=== PATIENT | female | born 1945 | race Caucasian/White ===

== ENCOUNTER 2016-12-19 13:09 | Observation (INO) | payer MEDICARE, OTHER ==
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
[2016-12-19 13:42] LABS: Hematocrit 41.3 % (37.0-47.0); Hemoglobin 14.3 gm/dL (12.5-16.0); Mean Cell Volume 88.6 fl (78-100); Mean Corpuscular Hemoglobin 30.7 pg (27-31); Mean Corpuscular Hgb Conc 34.6 g/dl (32-36); Mean Platelet Volume 11.2 fl (6.0-9.5); Neutrophil % 58.7 % (42-75.0); Platelet Count 167 K/mm3 (150-450); Red Blood Count 4.66 M/mm3 (4.2-5.4); Red Cell Distribution Width 12.3 % (11.5-14.0); White Blood Count 8.5 K/mm3 (4.0-10.5)
[2016-12-19 13:45] LABS: Prothrombin Time (Patient) 10.2 Seconds (9.4-11.4)
[2016-12-19 13:47] LABS: INR 0.98 INR (0.90-1.10); Partial Thrombolplastin Time 25.4 Seconds (24-32)
[2016-12-19 13:52] LABS: ALT 10 U/L (19-67); AST 8 U/L (0-48); Albumin * 3.7 gm/dl (3.4-5.0); Alkaline Phosphatase * 88 U/L (50-170); Anion Gap 10.3 mmol/L (6.8-13.8); BUN/Creatinine Ratio 17.6 (9.0-21.6); Bilirubin, Total 0.4 mg/dL (0.0-1.1); Blood Urea Nitrogen 16 mg/dL (3-23); Ca. Corrected For Albumin 9.2 mg/dL (8.4-10.2); Calcium * 9.3 mg/dL (7.9-10.9); Carbon Dioxide 29.3 mmol/L (24-32.6); Chloride 103 mmol/L (97-106); Glucose * 78 mg/dL (70-110); Potassium 4.6 mmol/L (3.4-4.6); Sodium 138 mmol/L (132-142); Total Protein 6.7 gm/dL (6.2-8.2); Troponin I Less than 0.017 ng/ml (0.00-0.10)
[2016-12-19] MEDS ORDERED: NICOTINE 21 MG PATC TD SCH (15:15)
[2016-12-19] MEDS ORDERED: NITROGLYCERIN 0.4 MG/TAB BTL SL PRN (15:23)
[2016-12-19] MEDS ORDERED: NICOTINE 14 MG PATC TD PRN (15:28)
[2016-12-19] MEDS ORDERED: ASPIRIN 81 MG TAB.CHEW PO STA (15:32)
[2016-12-19] MEDS ORDERED: ASPIRIN 81 MG TAB.CHEW PO ONE (15:32)
--- NOTE | 2016-12-19 15:32 | HP ---
Chief Complaint - Chief Complaint Date of Service: 12/19/16 Time of Service: 15:31 Chief Complaint: chest pain History of Present Illness: The patient is a 71-year-old female that presented to the emergency department for chest pain. The patient states that around noon today she developed chest pain that was centrally located and stretched all the way across her chest from one breast and the other. She describes the pain as a squeezing sensation. The pain occurred while at rest shortly after returning home from the grocery store. She states the pain lasted approximately 40 minutes before it completely resolved on its own prior to the patient arriving in the emergency department and she has not had any further episodes of chest pain since arrival. The patient denies any prior similar episodes. The patient denies any associated N/V, shortness of breath, sweating or radiation of the pain into her back, neck, jaw or arms. The patient denies any recent change in activity or other potential musculoskeletal etiology for her chest pain. The pain is not reproduced by any specific movement or by palpation. - Patient's Past Medical History Patient History - Medical: No pertinent hx Patient History - Cardiac/Respiratory: No pertinent hx Patient History - Cancer: No Hx of Cancer Patient History - Surgical Procedures: T & A Patient History - Other: None LMP (females 10-50): Menopausal - Family History Family History:: no family history of premature - no family history of heart disease or FL in first-degree relatives less than 55 years old - Social History Living Situations: home Psych History: No pertinent hx Smoking Status: Current every day smoker Have you smoked in the past 12 months: Yes Alcohol Use: other Drug Use: none - Immunizations Immunizations Up to Date: Yes Hx Pneumococcal Vaccination: No History of Influenza Vaccine: No Review Of Systems (GEN) - Review of Systems Generalized/Overall Review: Present: No Symptoms Reported EENTM: Present: No Symptoms Reported Respiratory: Present: No Symptoms Reported. Absent: Cough, Shortness of Breath , Orthopnea Cardiac: Present: No Symptoms Reported. Absent: Chest Pain, Edema, Palpitations , Syncope Abdominal: Present: No Symptoms Reported. Absent: Nausea, Vomiting, Abdominal Pain, Diarrhea Genitourinary: Present: No Symptoms Reported Musculoskeletal: Present: No Symptoms Reported Neurological: Present: No Symptoms Reported Skin: Present: No Symptoms Reported Endocrine: Present: No Symptoms Reported Misc: All systems neg except as marked Additional Comments: At the time of my exam, the patient denies any concerns and states that her chest pain has completely resolved and she feels back to her usual baseline. Immunizations: IMMUNIZATION HX Immunizations Up to Date Yes History of Influenza Vaccine No Hx Pneumococcal Vaccination No Allergies/Adverse Reactions: Allergies Allergy/AdvReac Type Severity Reaction Status Date / Time No Known Allergies Allergy Verified 12/19/16 13:17 Home Medications: HOME MEDICATIONS NK [No Home Medication] 05/27/16 [Last Taken Unknown] Exam - Exam Vital Signs: Vital Signs - Last Taken Temp 36.1 C L 12/19/16 15:08 Pulse 48 L 12/19/16 15:08 Resp 25 H 12/19/16 15:08 BP 152/59 12/19/16 15:08 Pulse Ox 100 12/19/16 15:08 Constitutional: Present: Alert, Oriented x3, Cooperative, Well developed, Well nourished, No distress, Looks Younger than stated age ENT Exam: Present: hearing grossly normal, moist mucous membranes Eye Exam: bilateral eye: normal inspection, EOMI Respiratory: Present: chest non-tender, lungs clear, no respiratory distress, no accessory muscle use, decreased breath sounds Cardiovascular/Chest: Present: no chest tenderness, no edema, no murmur, bradycardia Abdomen: Present: Normal bowel sounds, soft, nontender, nondistended, no rebound tenderness Extremity: Present: normal inspection, no pedal edema Skin Exam: Present: normal color, warm/dry, no cyanosis Neurologic: Present: no motor/sensory deficits, alert, normal mood/affect, oriented x 3 Appearance: Present: appropriate appearance, appropriate insight, neat, no memory impairment Eye contact: Present: cooperative, good eye contact, normal speech Thoughts: Present: normal thought pattern, no apparent hallucination Diagnostic Studies: Laboratory Results WBC 8.5 K/mm3 (4.0-10.5) 12/19/16 13:31 RBC 4.66 M/mm3 (4.2-5.4) 12/19/16 13:31 Hgb 14.3 gm/dL (12.5-16.0) 12/19/16 13:31 Hct 41.3 % (37.0-47.0) 12/19/16 13:31 MCV 88.6 fl (78-100) 12/19/16 13:31 MCH 30.7 pg (27-31) 12/19/16 13:31 MCHC 34.6 g/dl (32-36) 12/19/16 13:31 RDW 12.3 % (11.5-14.0) 12/19/16 13:31 Plt Count 167 K/mm3 (150-450) 12/19/16 13:31 MPV 11.2 fl (6.0-9.5) H 12/19/16 13:31 Immature Gran % (Auto) 0.20 % (0.001-0.429) 12/19/16 13:31 Immature Gran # (Auto) 0.02 K/mm3 (0.000-0.0310) 12/19/16 13:31 Neutrophils % 58.7 % (42-75.0) 12/19/16 13:31 Lymphocytes % 33.1 % (20-51) 12/19/16 13:31 Monocytes % 6.3 % (0.0-9) 12/19/16 13:31 Eosinophils % 1.2 % (0.0-3.0) 12/19/16 13:31 Basophils % 0.5 % (0.0-1.0) 12/19/16 13:31 Nucleated RBC % 0.0 k/mm3 (0-1) 12/19/16 13:31 Neutrophils # 5.0 K/mm3 (1.3-6.0) 12/19/16 13:31 Lymphocytes # 2.8 k/mm3 (1.5-3.5) 12/19/16 13:31 Monocytes # 0.5 k/mm3 (0.0-1.0) 12/19/16 13:31 Eosinophils # 0.1 k/mm3 (0.0-0.7) 12/19/16 13:31 Absolute Basophils 0.0 k/mm3 (0.0-0.1) 12/19/16 13:31 PT 10.2 Seconds (9.4-11.4) 12/19/16 13:31 INR (Anticoag Therapy) 0.98 INR (0.90-1.10) 12/19/16 13:31 PTT ([place]) 25.4 Seconds (24-32) 12/19/16 13:31 D-Dimer 0.52 mg/L (0.19-0.49) H 12/19/16 13:30 Sodium 138 mmol/L (132-142) 12/19/16 13:31 Plasma Sodium 138 mmol/L (130-142) 12/19/16 13:31 Potassium 4.6 mmol/L (3.4-4.6) 12/19/16 13:31 Chloride 103 mmol/L (97-106) 12/19/16 13:31 Carbon Dioxide 29.3 mmol/L (24-32.6) 12/19/16 13:31 Anion Gap 10.3 mmol/L (6.8-13.8) 12/19/16 13:31 BUN 16 mg/dL (3-23) 12/19/16 13:31 Creatinine 0.91 mg/dL (0.4-1.4) 12/19/16 13:31 Est GFR (Non-Af Amer) 65 mL/min (60-130) 12/19/16 13:31 BUN/Creatinine Ratio 17.6 (9.0-21.6) 12/19/16 13:31 Random Glucose 78 mg/dL (70-110) 12/19/16 13:31 Calcium 9.3 mg/dL (7.9-10.9) 12/19/16 13:31 Calcium Adj for Albumin 9.2 mg/dL (8.4-10.2) 12/19/16 13:31 Total Bilirubin 0.4 mg/dL (0.0-1.1) 12/19/16 13:31 AST 8 U/L (0-48) 12/19/16 13:31 ALT 10 U/L (19-67) L 12/19/16 13:31 Alkaline Phosphatase 88 U/L (50-170) 12/19/16 13:31 Troponin I Less than 0.017 ng/ml (0.00-0.10) 12/19/16 13:31 Total Protein 6.7 gm/dL (6.2-8.2) 12/19/16 13:31 Albumin 3.7 gm/dl (3.4-5.0) 12/19/16 13:31 Assessment/Plan - Narrative Narrative: IMPRESSION & PLAN: Chest Pain -Admit to Med-Surg, Observation Status -Potential etiologies include: ACS vs. musculoskeletal vs. GI (esophageal reflux, esophageal spasm, etc.) -Monitor on telemetry -Trend cardiac enzymes -Check cardiac panel and repeat EKG in a.m. -Give aspirin 325 mg PO X 1 STAT -Check CMP and fasting lipid panel in AM -D-dimer checked in the emergency department with results being flagged as elevated based on our laboratory range. However given the patients age, a d- dimer less than 0.70 would be considered normal. This was discussed with the emergency department physician; however, the emergency department physician made the decision to go ahead and get a chest CT with PE protocol just to be sure. Chest CT shows no evidence for pulmonary embolism, probable prominent pericardial recesses, mild cardiomegaly and emphysematous changes. Tobacco Abuse -Patient counseled on smoking cessation -Nicotine patch as needed during admission Disposition: If cardiac enzymes and overnight monitoring is uneventful, I will plan to discharge the patient home in the a.m. and recommend that she establish care at the primary care physician to discuss whether further outpatient workup is necessary or not. - Assessment/Plan (1) Chest pain Problem: Acute Qualifiers: Chest pain type: unspecified Qualified Code(s): R07.9 - Chest pain, unspecified (2) Tobacco abuse Problem: Chronic
[2016-12-19] MEDS ORDERED: ASPIRIN 81 MG TAB.CHEW ONE (16:26)
[2016-12-20 06:33] LABS: ALT 13 U/L (19-67); AST 8 U/L (0-48); Albumin * 3.6 gm/dl (3.4-5.0); Alkaline Phosphatase * 81 U/L (50-170); Anion Gap 15.5 mmol/L (6.8-13.8); BUN/Creatinine Ratio 15.7 (9.0-21.6); Bilirubin, Total 0.4 mg/dL (0.0-1.1); Blood Urea Nitrogen 11 mg/dL (3-23); CK Total * 34 U/L (0-259); Ca. Corrected For Albumin 9.2 mg/dL (8.4-10.2); Calcium * 9.2 mg/dL (7.9-10.9); Carbon Dioxide 26.4 mmol/L (24-32.6); Chloride 104 mmol/L (97-106); Chol/HDL Risk Ratio 2.5 mg/dL (3.3-4.4); Cholesterol 170 mg/dL (0-200); Glucose * 89 mg/dL (70-110); HDL Cholesterol 68 mg/dL (40-60); LDL Cholesterol 87 mg/dL (70-130); Potassium 3.9 mmol/L (3.4-4.6); Sodium 142 mmol/L (132-142); Total Protein 6.6 gm/dL (6.2-8.2); Triglycerides 73 mg/dL (30-200); Troponin I Less than 0.017 ng/ml (0.00-0.10); VLDL Cholesterol 15 mg/dL (5-40)
[2016-12-20 08:19] VITALS: BP 124/44
--- NOTE | 2016-12-20 08:56 | DS ---
(1) Chest pain Problem: Acute Qualifiers: Chest pain type: unspecified Qualified Code(s): R07.9 - Chest pain, unspecified (2) Tobacco abuse Problem: Chronic Description of Stay: ADMISSION DATE: 12/19/2016 DISCHARGE DATE: 12/20/2016 ADMISSION HPI: The patient is a 71-year-old female that presented to the emergency department for chest pain. The patient states that around noon today she developed chest pain that was centrally located and stretched all the way across her chest from one breast and the other. She describes the pain as a squeezing sensation. The pain occurred while at rest shortly after returning home from the grocery store. She states the pain lasted approximately 40 minutes before it completely resolved on its own prior to the patient arriving in the emergency department and she has not had any further episodes of chest pain since arrival. The patient denies any prior similar episodes. The patient denies any associated N/V, shortness of breath, sweating or radiation of the pain into her back, neck, jaw or arms. The patient denies any recent change in activity or other potential musculoskeletal etiology for her chest pain. The pain is not reproduced by any specific movement or by palpation. PROBLEM BASED HOSPITAL COURSE: Chest Pain -Potential etiologies include: ACS vs. musculoskeletal vs. GI (esophageal reflux, esophageal spasm, etc.). The patient was monitored on telemetry overnight and she had serial cardiac enzyme monitoring. There were no issues or concerns to report on telemetry and her serial cardiac enzymes were unremarkable. I have recommended to the patient that she follow-up with her primary care provider within one week of discharge to discuss whether or not further outpatient evaluation is felt to be necessary such as an echocardiogram or cardiac stress test. The patient did not experience any episodes of chest pain during her admission. -Patient unfortunately did not receive aspirin upon arrival in the emergency department she was given aspirin 325 mg PO X 1 STAT upon arrival to [facility]. -Fasting lipid panel shows adequately controlled cholesterol levels with diet modifications only (patient is not on any statin or other lipid-lowering medications) -D-dimer checked in the emergency department with results being flagged as elevated based on our laboratory range. However, given the patients age, a d- dimer less than 0.70 would be considered normal. This was discussed with the emergency department physician; however, the emergency department physician made the decision to go ahead and get a chest CT with PE protocol just to be sure. Chest CT shows no evidence for pulmonary embolism, probable prominent pericardial recesses, mild cardiomegaly and emphysematous changes. Tobacco Abuse -Patient counseled on smoking cessation. The patient was given reading material and information about [facility] [place] and I encouraged her to call them to discuss potential treatment strategies/options. FOLLOW-UP APPOINTMENTS: PCP within 1 week NEW OR CHANGED MEDICATIONS: Aspirin 81mg PO daily (unsure if patient will actually take this on a daily basis or not) DISCONTINUED MEDICATIONS: None RADIOLOGY REPORTS: Chest x-ray on 12/19/2016 showed: Mild hyperinflation with mild scattered fibrotic change. No acute cardiopulmonary process. CT angiogram of the chest with PE protocol on 12/19/2016 showed: No evidence for pulmonary embolus. Fluid density structure in the anterior mediastinum adjacent to the right pulmonary veins, most likely reflecting prominent pericardial recesses. Mildly enlarged heart. Minimal centrilobular emphysematous changes. Procedures Performed: none Results and Findings: Laboratory Tests 12/19/16 12/20/16 21:23 05:39 WBC 8.5 RBC 4.66 Hgb 14.3 Hct 41.3 MCV 88.6 Plt Count 167 D-Dimer 0.52 H Sodium 142 Potassium 3.9 Creatinine 0.70 Random Glucose 89 AST 8 ALT 13 L Alkaline Phosphatase 81 Creatine Kinase 34 CK-MB (CK-2) Less than 0.5 CK-MB (CK-2) Rel Index 1.5 Troponin I Less than 0.017 Less than 0.017 Total Protein 6.6 Albumin 3.6 Triglycerides 73 Cholesterol 170 LDL Cholesterol 87 VLDL Cholesterol 15 HDL Cholesterol 68 H Cholesterol/HDL Ratio 2.5 L Discharge Disposition: Home self care Disposition: Home self-care Condition: Stable Discharge Activity: Activity as tolerated Discharge Diet: General/regular food, Resume usual diet Referrals: Smitha Delgado MD [Primary Care Provider] - Problem Oriented Discharge Instructions to Patient/Family: Chest Wall Pain, [id number] Additional Patient Instructions (free text): Follow-up with PCP, Dr. Delgado, December2016 at 2:00 pm. Prescriptions (Any new or edited meds): Aspirin [Juniata Aspirin] 81 mg PO DAILY #30 tablet. Complete Home Medications List: Complete Home Medication List: Aspirin [Juniata Aspirin] 81 mg PO DAILY #30 tablet. 12/20/16 Nicotine [Nicoderm] 14 mg TD Q24H PRN #0 patch.td24 12/20/16
[2016-12-20] MEDS ORDERED: ASPIRIN 81 MG TABLET.DR PO SCH (09:00)
[2016-12-20] MEDS ORDERED: ASPIRIN 81 MG TAB.CHEW PO SCH (15:24)
== END 2016-12-20 11:10 | disposition home or self-care (01) ==
LOC: ER 13:09 → MS 14:45
PROVIDERS: ADMIT Internal Medicine; ATTEND Internal Medicine
DX: R07.9 Chest pain, unspecified (principal); J43.9 Emphysema, unspecified; Z72.0 Tobacco use
CPT/HCPCS: 36415; 71020; 71275; 80053; 80061; 82550; 82553; 84484; 85025; 85379; 85610; 85730; 93005; 99284; G0378

== ENCOUNTER 2017-03-18 12:45 | Emergency (ER) | payer MEDICARE, OTHER ==
[2017-03-18 13:22] VITALS: BP 125/77
--- NOTE | 2017-03-18 13:36 | ERNOTE ---
Head Injury HPI - Narrative Date of Service: 03/18/17 - General Injury to: head Time Seen by Provider: 03/18/17 13:45 Exam Limitations: no limitations - Immun/Allergies/Home Medications Immunization: IMMUNIZATION HX Immunizations Up to Date Yes History of Influenza Vaccine No Hx Pneumococcal Vaccination No Allergies/Adverse Reactions: Allergies Allergy/AdvReac Type Severity Reaction Status Date / Time No Known Allergies Allergy Verified 03/18/17 13:23 Home Medications: HOME MEDICATIONS Aspirin [Hickox Aspirin] 81 mg PO DAILY #30 tablet. 12/20/16 [Last Taken Unknown] - History of Present Illness Narrative: Patient fell in her basement two days ago. She lost her balance pulling something up the stairs and fell off four stairs landing on her left side. She denies any loss of consciousness, woke up yesterday and this morning with dizziness and off balance. Symptoms have improved during the day, initial nausea has resolved, no headache Location Occurred: home Head Injury Location: temporal Method of Injury: Reports: fell Reason for Fall: Reports: lost balance Loss of Consciousness: Reports: no loss of consciousness, remembers event, remembers coming to hospital Associated Symptoms: Denies: denies symptoms, chest pain, fever/chills, headaches, loss of appetite Review of Systems - Review of Systems Constitutional: Absent: recent illness, fever EYE: Absent: vision changes ENT: Absent: nose congestion, sore throat Respiratory: Absent: shortness of breath, cough Cardiology: Absent: chest pain Gastrointestinal/Abdominal: Present: See HPI, nausea. Absent: vomiting, diarrhea, abdominal pain Genitourinary: Present: no symptoms reported Musculoskeletal: Absent: back pain, neck pain Skin: Absent: rash Neurological: Present: See HPI, headache, dizziness/light-headedness. Absent: weakness, numbness - Patient's Past Medical History Patient History - Medical: No pertinent hx Patient History - Cardiac/Respiratory: No pertinent hx Patient History - Cancer: No Hx of Cancer Patient History - Surgical Procedures: T & A, Other Patient History - Other: None LMP (females 10-50): Menopausal - Family History Mother Family History - Medical: , Diabetes Type 2 Family History - Cardiac/Respiratory: History Unknown Father Family History - Medical: , History Unknown Family History - Cardiac/Respiratory: History Unknown Family History - Cancer: History Unknown - Social History Living Situations: home Abuse History: No History of abuse Psych History: No pertinent hx Smoking Status: Current every day smoker Cigarettes Packs Per Day: 1 Have you smoked in the past 12 months: Yes Alcohol Use: occasionally Drug Use: none - Immunizations Immunizations Up to Date: Yes Hx Pneumococcal Vaccination: No History of Influenza Vaccine: No Physical Exam - Physical Exam General Appearance: Present: wd/wn, alert, no apparent distress Head Exam: Present: normal inspection, ecchymosis - slightly tender over left parietal area Eye Exam: Normal inspection: bilateral, PERRL: bilateral Ears, Nose, Throat: Present: normal ENT inspection Neck: Present: normal inspection, nontender Respiratory: Present: no respiratory distress, normal breath sounds, chest nontender, lungs clear Cardiovascular/Chest: Present: regular rate, rhythm, no murmur Gastrointestinal/Abdominal: Present: normal bowel sounds, nontender, nondistended Extremity Exam: Present: normal inspection, non-tender, normal range of motion, no edema Neurological Exam: Present: alert, oriented, normal mood/affect, no motor/ sensory deficits Skin Exam: Present: normal color, warm/dry ED Progress - Vital Signs Patient's Vital Signs:: I have reviewed the patient's vital signs. Vital Signs: Vital Signs 03/18/17 13:17 Temperature 36.7 C Pulse Rate 72 Respiratory 16 Rate Blood Pressure 125/77 O2 Sat by Pulse 96 Oximetry - CT/Ultrasound CT/Ultrasound Narrative: CT head: chronic changes, no acute - Progress/Reassessment Chief Complaint: Head Injury Progress Note-Subjective: 03/18/17 14:[address] findings and concussion diagnosis with patient Departure Clinical Impression: Concussion Qualifiers: Encounter type: initial encounter Loss of consciousness presence/duration: without LOC Qualified Code(s): S06.0X0A - Concussion without loss of consciousness, initial encounter - Departure Disposition: Home self-care Condition: Good Instructions: Concussion, Adult, [id number] Referrals: Smitha Delgado MD [Primary Care Provider] -
== END 2017-03-18 14:06 | disposition home or self-care (01) ==
LOC: ER 12:45
DX: S06.0X0A Concussion without loss of consciousness, initial encounter (principal); F17.210 Nicotine dependence, cigarettes, uncomplicated; W10.8XXA Fall (on) (from) other stairs and steps, initial encounter; Y92.008 Other place in unspecified non-institutional (private) residence as the place of occurrence of the external cause